=== PATIENT | female | born 1950 | race Caucasian/White ===

== ENCOUNTER 2019-04-11 15:07 | Emergency (ER) | payer OTHER ==
[~2019-04-11] VITALS: Wt 90.0 kg
[2019-04-11] MEDS ORDERED: LABETALOL HCL 20MG INJ IV PRN (16:00)
[2019-04-11 17:30] VITALS: BP 155/71; PULSE 55; RESP 18
[2019-04-11] MEDS ORDERED: MECL12.574 PO (17:39)
--- NOTE | 2019-04-11 18:19 | ERD ---
ER Documentation Chief Complaint Chief Complaint DIZZINESS AND BLURRY VISION X 3 DAYS HPI Patient is a 68-year-old female with prediabetes and hypertension who presents with dizziness. She also had blurry vision. The blurry vision is in both eyes. She said the symptoms started 3 days ago. She has left-sided facial pain. She tried hypertension medications today but no pain meds. Upon review of old medical records this is the patient's first visit to the emergency department. She goes to the [facility] clinic for her primary care. ROS All systems reviewed and are negative except as per history of present illness. Medications Home Meds Active Scripts Meclizine Hcl* (Antivert*) 12.5 Mg Tab, 25 MG PO Q6H PRN for DIZZINESS, #20 TAB Prov:ALEJANDRINA LEWIS MD 04/11/19 PMhx/Soc History of Surgery: No Anesthesia Reaction: No Hx Neurological Disorder: No Hx Respiratory Disorders: No Hx Psychiatric Problems: No Hx Miscellaneous Medical Probl: No Hx Alcohol Use: No Hx Substance Use: No Hx Tobacco Use: Yes Smoking Status: Current some day smoker FmHx Family History: diabetes Physical Exam Vitals Vital Signs Date Temp Pulse Resp B/P (MAP) Pulse Ox O2 O2 Flow FiO2 Time Delivery Rate 04/11/19 98.0 55 18 155/71 98 Room Air 17:30 (99) 04/11/19 98.0 58 18 146/70 98 Room Air 16:13 (95) 04/11/19 98.0 59 18 219/99 98 15:30 (139) Physical Exam Const: No acute distress Head: Atraumatic Eyes: Normal Conjunctiva ENT: Normal External Ears, Nose and Mouth. Neck: Full range of motion. No meningismus. Resp: Clear to auscultation bilaterally Cardio: Regular rate and rhythm, no murmurs Abd: Soft, non tender, non distended. Normal bowel sounds Skin: No petechiae or rashes Back: No midline or flank tenderness Ext: No cyanosis, or edema Neur: Awake and alert, cranial nerves II through XII are intact, strength is 5 out of 5 in all 4 extremities, no slurred speech, no pronator drift Psych: Normal Mood and Affect Result Diagram: 04/11/19 1605 04/11/19 1605 Results 24 hrs Laboratory Tests Test 04/11/19 16:05 04/11/19 16:07 White Blood Count 10.0 10^3/ul Red Blood Count 5.38 10^6/ul Hemoglobin 14.1 g/dl Hematocrit 44.7 % Mean Corpuscular Volume 83.1 fl Mean Corpuscular Hemoglobin 26.2 pg Mean Corpuscular Hemoglobin Concent 31.5 g/dl Red Cell Distribution Width 12.6 % Platelet Count 206 10^3/UL Mean Platelet Volume 11.9 fl Immature Granulocytes % 0.300 % Neutrophils % 62.2 % Lymphocytes % 28.6 % Monocytes % 7.2 % Eosinophils % 1.1 % Basophils % 0.6 % Nucleated Red Blood Cells % 0.0 /100WBC Immature Granulocytes # 0.030 10^3/ul Neutrophils # 6.2 10^3/ul Lymphocytes # 2.9 10^3/ul Monocytes # 0.7 10^3/ul Eosinophils # 0.1 10^3/ul Basophils # 0.1 10^3/ul Nucleated Red Blood Cells # 0.0 10^3/ul Prothrombin Time 12.8 Sec Prothrombin Time Ratio 1.0 INR International Normalized Ratio 0.95 Activated Partial Thromboplast Time 37.6 Sec Urine Color STRAW Urine Clarity CLEAR Urine pH 6.0 Urine Specific [place] 1.010 Urine Ketones NEGATIVE mg/dL Urine Nitrite NEGATIVE mg/dL Urine Bilirubin NEGATIVE mg/dL Urine Urobilinogen NEGATIVE mg/dL Urine Leukocyte Esterase NEGATIVE Brandy/ul Urine Hemoglobin NEGATIVE mg/dL Urine Glucose NEGATIVE mg/dL Urine Total Protein NEGATIVE mg/dl Sodium Level 140 mmol/L Potassium Level 4.3 mmol/L Chloride Level 104 mmol/L Carbon Dioxide Level 28 mmol/L Anion Gap 8 Blood Urea Nitrogen 12 mg/dl Creatinine 0.69 mg/dl Est Glomerular Filtrat Rate mL/min > 60 mL/min Glucose Level 84 mg/dl Hemoglobin A1c 6.2 % Calcium Level 9.8 mg/dl Troponin I < 0.012 ng/ml Triglycerides Level 246 mg/dl Cholesterol Level 195 mg/dl LDL Cholesterol, Calculated 108 mg/dl HDL Cholesterol 38 mg/dl Cholesterol/HDL Ratio 5.1 RATIO Urine Opiates Screen Negative Urine Barbiturates Negative Urine Amphetamines Screen Negative Urine Benzodiazepines Screen Negative Urine Cocaine Screen Negative Urine Cannabinoids Negative Bedside Glucose 75 mg/dL Current Medications Medications Dose Sig/Sary Start Time Status Last (Trade) Ordered Route PRN Stop Time Admin Dose Reason Admin Labetalol 20 mg Q20M PRN 04/11/19 DC HCl IV ELEVATED 16:00 (Labetalol) BLOOD 04/11/19 17:49 PRESSURE Procedures/MDM CT brain read by radiology. Chest x-ray read by radiology. EKG read by me: Rate/Rhythm: Regular rate and rhythm Intervals: Normal Impression: No evidence of ischemia or arrhythmia Smoking Cessation Therapy: Pt. was lectured for greater than 3 minutes on the health risks of continued smoking and the benefits of cessation. Patient is a 68-year-old female who presents with dizziness and blurry vision. She had a full stroke work-up performed and I wanted to admit her for stroke. However she is adamant that she does not worsen in the hospital. I believe an outpatient trial would be appropriate but she will need to follow-up closely with her primary doctor within [address] brain shows no sign of stroke, bleed, or mass. EKG shows no signs of ischemia. Laboratory studies were basically normal. The patient did have elevated blood pressure and I was going to give labetalol but repeat blood pressure was improved. The patient went to follow-up closely but could return for any worsening symptoms. She was provided with copies of imaging test and laboratory studies prior to discharge. Departure Diagnosis: Primary Impression: HTN (hypertension) Hypertension type: essential hypertension Qualified Codes: I10 - Essential (primary) hypertension Additional Impression: Dizziness Condition: Fair Patient Instructions: High Blood Pressure (Hypertension), Dizziness, Unk Cause Referrals: Your doctor at [facility] Additional Instructions: Llame al doctor MAANA y tom mo JENNIFER PARA DENTRO DE 1-2 [place].Dgale a la secretaria que nosotros le instruimos hacer esta jennifer.Avise o llame si wong condicin se empeora antes de la jennifer. Regresa aqui si peor o no mejor. ALEJANDRINA LEWIS MD Apr 11, 2019 18:19
== END 2019-04-11 17:49 | disposition home or self-care (01) ==
LOC: E/R 15:07
DX: I10 Essential (primary) hypertension (principal); F17.210 Nicotine dependence, cigarettes, uncomplicated; R40.2142 Coma scale, eyes open, spontaneous, at arrival to emergency department; R40.2362 Coma scale, best motor response, obeys commands, at arrival to emergency department; R40.2252 Coma scale, best verbal response, oriented, at arrival to emergency department
CPT/HCPCS: 36415; 70450; 71045; 80048; 80061; 80307; 81003; 82962; 83036; 84484; 85025; 85610; 85730; 93005